=== PATIENT | female | born 1970 | race African-American/Black ===

== ENCOUNTER 2016-12-21 14:06 | Emergency (ER) | payer BC ==
[2016-12-21] MEDS ORDERED: IBUPROFEN 600 MG TABLET PO ONE (15:45)
[2016-12-21] MEDS ORDERED: ONDANSETRON 4 MG TAB.RAPDIS PO ONE (15:45)
[2016-12-21] MEDS ORDERED: HYDROCODONE/ACETAMINOPHEN 5-325 MG TABLET PO ONE (15:45)
--- NOTE | 2016-12-21 15:47 | ER Document Report ---
ED GI/ - General Chief Complaint: Flank Pain Stated Complaint: STOMACH PAIN Time Seen by Provider: 12/21/16 15:41 Notes: Patient is a 46-year-old female, past medical history fibroids, presents with 2 days of left flank pain radiating into her groin. She says the pain is now constant she is noticing blood in her urine. She has never had this before. Also, she is having nausea and vomiting. Denies fevers, headache, chest pain, shortness of breath, dysuria or rash. TRAVEL OUTSIDE OF THE [place] IN LAST 30 DAYS: No - Related Data Allergies/Adverse Reactions: No Known Allergies Allergy (Verified 12/21/16 14:12) Past Medical History - General Information source: Patient - Social History Smoking Status: Current Every Day Smoker Family History: CVA, Other - lung cancer- mom Patient has suicidal ideation: No Patient has homicidal ideation: No - Past Medical History Cardiac Medical History: Reports: Hx Hypertension Renal/ Medical History: Denies: Hx Peritoneal Dialysis Psychiatric Medical History: Reports: Hx Depression Past Surgical History: Reports: Hx Section, Hx Tubal Ligation Review of Systems - Review of Systems Notes: REVIEW OF SYSTEMS: CONSTITUTIONAL: -fevers, -chills EENT: -eye pain, -difficulty swallowing, -nasal congestion CARDIOVASCULAR:-chest pain, -syncope. RESPIRATORY: -cough, -SOB GASTROINTESTINAL: +abdominal pain, +nausea, +vomiting, -diarrhea GENITOURINARY: -dysuria, +hematuria MUSCULOSKELETAL: +left flank pain, -neck pain SKIN: -rash or skin lesions. HEMATOLOGIC: -easy bruising or bleeding. LYMPHATIC: -swollen, enlarged glands. NEUROLOGICAL: -altered mental status or loss of consciousness, -headache, - neurologic symptoms PSYCHIATRIC: -anxiety, -depression. ALL OTHER SYSTEMS REVIEWED AND NEGATIVE. Physical Exam - Vital signs Vitals: Temp Pulse Resp BP Pulse Ox 99.1 F 98 20 146/78 H 100 12/21/16 14:12 12/21/16 14:12 12/21/16 14:12 12/21/16 14:12 12/21/16 14:12 - Notes Notes: PHYSICAL EXAMINATION: GENERAL: Uncomfortable. HEAD: Atraumatic, normocephalic. EYES: Pupils equal round and reactive to light, extraocular movements intact, sclera anicteric, conjunctiva are normal. ENT: nares patent, oropharynx clear without exudates. Moist mucous membranes. NECK: Normal range of motion, supple without lymphadenopathy LUNGS: Breath sounds clear to auscultation bilaterally and equal. No wheezes rales or rhonchi. HEART: Regular rate and rhythm without murmurs ABDOMEN: Soft, nontender, normoactive bowel sounds. No guarding, no rebound. No masses appreciated. EXTREMITIES: Normal range of motion, no pitting or edema. No cyanosis. NEUROLOGICAL: Cranial nerves grossly intact. Normal speech, normal gait. Normal sensory and motor exams. PSYCH: Normal mood, normal affect. SKIN: Warm, Dry, normal turgor, no rashes or lesions noted. Course - Re-evaluation Re-evalutation: Call from lab. Patient has hemoglobin of 6.3. She has a history of fibroids and has menstrual bleeding for 10-12 days a month. Will transfer patient back to main side for further evaluation and treatment. Type and screen sent and will crossmatch for 1 unit pRBCs. - Vital Signs Vital signs: Temp Pulse Resp BP Pulse Ox 99.1 F 98 20 146/78 H 100 12/21/16 14:12 12/21/16 14:12 12/21/16 14:12 12/21/16 14:12 12/21/16 14:12 - Laboratory Result Diagrams: 12/21/16 15:56 12/21/16 15:56 Laboratory results interpreted by me: 12/21/16 12/21/16 15:56 15:56 Hgb 6.3 L Hct 23.4 L MCV 54 L MCH 14.6 L MCHC 26.8 L RDW 23.8 H Plt Count 475 H Sodium 136.8 L Est GFR (Non-Af Amer) 58 L Alkaline Phosphatase 36 L
[2016-12-21 16:22] LABS: ABSOLUTE BASOPHILS # (AUTO) 0.1 10^3/uL (0.0-0.2); ABSOLUTE EOSINOPHILS # (AUTO) 0.2 10^3/uL (0.0-0.6); ABSOLUTE LYMPHOCYTES (AUTO) 2.5 10^3/uL (0.5-4.7); ABSOLUTE MONOCYTES (AUTO) 0.7 10^3/uL (0.1-1.4); ABSOLUTE NEUT (AUTO) 4.5 10^3/uL (1.7-8.2); BASOPHILS % (AUTO) 0.9 % (0-2); EOSINOPHILS % (AUTO) 2.8 % (0-6); HEMATOCRIT 23.4 % (36.0-47.0); LYMPHOCYTES % (AUTO) 31.3 % (13-45); MEAN CORPUSCULAR HEMOGLOBIN 14.6 pg (27.0-33.4); MEAN CORPUSCULAR HGB CONC 26.8 g/dL (32.0-36.0); MEAN CORPUSCULAR VOLUME 54 fl (80-97); MONOCYTES % (AUTO) 8.4 % (3-13); RED CELL DISTRIBUTION WIDTH 23.8 % (11.5-14.0); SEGMENTED NEUTROPHILS % (AUTO) 56.6 % (42-78)
--- NOTE | 2016-12-21 16:22 | RADIOLOGY REPORT (SQ) ---
EXAM DESCRIPTION: CT LTD RENAL STONE PROTOCOL ON COMPLETED DATE/TIME: 12/21/2016 4:09 pm REASON FOR STUDY: left flank pain COMPARISON: 11/15/2013 TECHNIQUE: CT scan of the abdomen and pelvis performed without intravenous or oral contrast. Images reviewed with lung, soft tissue, and bone windows. Reconstructed coronal and sagittal MPR images revi ewed. All images stored on PACS. All CT scanners at this facility use dose modulation, iterative reconstruction, and/or weight based d osing when appropriate to reduce radiation dose to as low as reasonably achievable (ALARA). [facility]: Dose Right [facility]: CareDose [facility]: Dose Right [facility]: Teradose 4D [facility]: Smart TopRealty RADIATION DOSE: Up-to-date CT equipment and radiation dose reduction techniques were employed. CTDIv ol: 9.8 mGy. DLP: 468 mGy-cm.mGy. LIMITATIONS: Motion. FINDINGS: LOWER CHEST: No significant findings. No nodules or infiltrates. NON-CONTRASTED LIVER, SPLEEN, ADRENALS: Stable hepatic cyst and hemangioma. PANCREAS: No masses. No peripancreatic inflammatory changes. GALLBLADDER: No identified stones by CT criteria. No inflammatory changes to suggest cholecystitis. RIGHT KIDNEY AND URETER: No suspicious masses. Assessment limited by lack of IV contrast. No signif icant calcifications. No hydronephrosis or hydroureter. LEFT KIDNEY AND URETER: No suspicious masses. Assessment limited by lack of IV contrast. No signifi cant calcifications. No hydronephrosis or hydroureter. AORTA AND RETROPERITONEUM: No aneurysm. No retroperitoneal masses or adenopathy. BOWEL AND PERITONEAL CAVITY: No obvious masses or inflammatory changes. No free fluid. APPENDIX: Normal. PELVIS, BLADDER, AND ABDOMINAL WALL:Enlarged fibroid uterus. BONES: No significant findings. OTHER: No other significant finding. IMPRESSION: No acute abnormality in the abdomen or pelvis. TECHNICAL DOCUMENTATION: JOB ID: [id number] Quality ID # [id number]: Final reports with documentation of one or more dose reduction techniques (e.g., Au tomated exposure control, adjustment of the mA and/or kV according to patient size, use of iterative reconstruction technique) 2010 [employer]- All Rights Reserved
[2016-12-21 16:36] LABS: ALANINE AMINOTRANSFERASE 16 U/L (9-52); ALBUMIN 4.6 g/dL (3.5-5.0); ALKALINE PHOSPHATASE 36 U/L (38-126); ANION GAP 13 (5-19); ASPARTATE AMINO TRANSFERASE 15 U/L (14-36); BILIRUBIN,DIRECT 0.3 mg/dL (0.0-0.4); BILIRUBIN,TOTAL 0.4 mg/dL (0.2-1.3); BLOOD UREA NITROGEN 14 mg/dL (7-20); CALCIUM 9.7 mg/dL (8.4-10.2); CARBON DIOXIDE 24 mmol/L (22-30); CHLORIDE 100 mmol/L (98-107); CREATININE RESULT 1.04 mg/dL (0.52-1.25); GLUCOSE 99 mg/dL (75-110); LIPASE 78.2 U/L (23-300); SODIUM 136.8 mmol/L (137-145); TOTAL PROTEIN 7.8 g/dL (6.3-8.2)
[2016-12-21 16:45] LABS: HGB HCT DIFFERENCE -4.5
[2016-12-21 16:48] LABS: HYPOCHROMASIA 3+; MICROCYTOSIS 4+; POIKILOCYTOSIS 2+
[2016-12-21 16:49] LABS: OVALOCYTES SLIGHT; TARGET CELLS SLIGHT; TEAR DROP CELLS SLIGHT
[2016-12-21 16:57] LABS: HEMOGLOBIN 6.3 g/dL (12.0-15.5)
[2016-12-21] MEDS ORDERED: NORMAL SALINE 250 ML IV PRN (16:59)
[2016-12-21 17:19] LABS: APPEARANCE,URINE CLEAR; BILIRUBIN,URINE NEGATIVE (NEGATIVE); GLUCOSE, URINE NEGATIVE (NEGATIVE); KETONES,URINE NEGATIVE (NEGATIVE); LEUKOCYTE ESTERASE,URINE NEGATIVE (NEGATIVE); NITRITE,URINE NEGATIVE (NEGATIVE); PROTEIN,URINE NEGATIVE (NEGATIVE); URINE SPECIFIC GRAVITY 1.011; UROBILINOGEN,URINE NEGATIVE mg/dL (<2.0)
[2016-12-21 22:57] VITALS: BP 143/89
== END 2016-12-21 23:00 | disposition home or self-care (01) ==
LOC: ER 14:06
DX: D25.9 Leiomyoma of uterus, unspecified (principal); D64.9 Anemia, unspecified; K59.00 Constipation, unspecified; N92.0 Excessive and frequent menstruation with regular cycle; R10.9 Unspecified abdominal pain; R11.2 Nausea with vomiting, unspecified; F17.200 Nicotine dependence, unspecified, uncomplicated; Z98.51 Tubal ligation status
CPT/HCPCS: 99284; 86900; 86901; 36415; 36430; 86850; 83540; 83690; 85025; 81025; 80053; 81001; 86920; 76380; P9016; S0119

== ENCOUNTER 2017-07-16 14:44 | Observation (INO) | payer SELFPAY ==
[~2017-07-16 14:44] MED LIST: ACETAMINOPHEN 325 MG TABLET PO PRN; DIPHENHYDRAMINE HCL 25 MG CAPSULE PO PRN; FUROSEMIDE INJ/PF 20 MG/2 ML SDV IV PRN
[2017-07-16] MEDS ORDERED: NORMAL SALINE 250 ML IV PRN (15:02)
[2017-07-16 15:55] LABS: MEAN CORPUSCULAR HEMOGLOBIN 14.2 pg (27.0-33.4); MEAN CORPUSCULAR HGB CONC 26.3 g/dL (32.0-36.0); MEAN CORPUSCULAR VOLUME 54 fl (80-97); PLATELET COUNT 138 10^3/uL (150-450); RED BLOOD COUNT 3.32 10^6/uL (3.72-5.28); RED CELL DISTRIBUTION WIDTH 28.4 % (11.5-14.0); WHITE BLOOD COUNT 6.9 10^3/uL (4.0-10.5)
[2017-07-16 16:19] LABS: HEMOGLOBIN 4.7 g/dL (12.0-15.5)
[2017-07-17 09:48] LABS: HEMATOCRIT 29.9 % (36.0-47.0); MEAN CORPUSCULAR HEMOGLOBIN 19.1 pg (27.0-33.4); MEAN CORPUSCULAR HGB CONC 29.8 g/dL (32.0-36.0); PLATELET COUNT 106 10^3/uL (150-450); RED BLOOD COUNT 4.67 10^6/uL (3.72-5.28); RED CELL DISTRIBUTION WIDTH 35.3 % (11.5-14.0); WHITE BLOOD COUNT 6.5 10^3/uL (4.0-10.5)
[2017-07-17 09:55] LABS: HEMOGLOBIN 8.9 g/dL (12.0-15.5)
[2017-07-17 09:56] LABS: MEAN CORPUSCULAR VOLUME 64 fl (80-97)
[2017-07-17 10:00] VITALS: BP 143/79
== END 2017-07-17 11:04 | disposition home or self-care (01) ==
LOC: 2S 14:44
PROVIDERS: ADMIT Internal Medicine Hematology & Oncology; ATTEND Internal Medicine Hematology & Oncology
PROC: 30233N1 Transfusion of Nonautologous Red Blood Cells into Peripheral Vein, Percutaneous Approach (ICD-10-PCS; principal; 2017-07-16)
PROC: 30233N1 Transfusion of Nonautologous Red Blood Cells into Peripheral Vein, Percutaneous Approach (ICD-10-PCS; 2017-07-17)
DX: D64.9 Anemia, unspecified (principal)
CPT/HCPCS: 86900; 86901; 36415 ×2; 36430; 86850; 85027; 86920; G0378 ×2; P9016 ×2; J1940; 96374

== ENCOUNTER 2017-07-29 10:06 | Outpatient (CLI) | payer SELFPAY ==
[~2017-07-29 10:06] MED LIST changes: -DIPHENHYDRAMINE HCL 25 MG CAPSULE PO PRN; +DIPHENHYDRAMINE HCL 50 MG/ML VIAL IV PRN; -FUROSEMIDE INJ/PF 20 MG/2 ML SDV IV PRN; +IRON DEXTRAN COMPLEX 25 MG in SYRINGE, DISPOSABLE, 1 EACH IV PRN; +IRON DEXTRAN COMPLEX 975 MG in NORMAL SALINE 1000 ML 1,000 ML IV PRN; +NORMAL SALINE 250 ML IV PRN
[2017-07-29 12:15] VITALS: BP 151/82
== END 2017-07-29 15:53 | disposition home or self-care (01) ==
LOC: II 10:06 → 5TH 10:10 → II 15:53
PROVIDERS: ATTEND Internal Medicine Hematology & Oncology
PROC: 3E033GC Introduction of Other Therapeutic Substance into Peripheral Vein, Percutaneous Approach (ICD-10-PCS; principal; 2017-07-29)
DX: D50.0 Iron deficiency anemia secondary to blood loss (chronic) (principal)
CPT/HCPCS: 96365; 96366; 96374; J1200; J1750; J7030; J3490; 96375

== ENCOUNTER 2017-10-08 12:56 | Outpatient (CLI) | payer BC, OTHER ==
[~2017-10-08 12:56] MED LIST changes: -ACETAMINOPHEN 325 MG TABLET PO PRN; -DIPHENHYDRAMINE HCL 50 MG/ML VIAL IV PRN; +FERRIC CARBOXYMALTOSE 750 MG in NORMAL SALINE 250 ML IV PRN; -IRON DEXTRAN COMPLEX 25 MG in SYRINGE, DISPOSABLE, 1 EACH IV PRN; -IRON DEXTRAN COMPLEX 975 MG in NORMAL SALINE 1000 ML 1,000 ML IV PRN
[2017-10-08 13:21] VITALS: BP 137/82
== END 2017-10-08 14:35 | disposition home or self-care (01) ==
LOC: II 12:56 → 5TH 13:19 → II 14:35
PROVIDERS: ATTEND Specialist
PROC: 3E033GC Introduction of Other Therapeutic Substance into Peripheral Vein, Percutaneous Approach (ICD-10-PCS; principal; 2017-10-08)
DX: D50.0 Iron deficiency anemia secondary to blood loss (chronic) (principal); N92.0 Excessive and frequent menstruation with regular cycle
CPT/HCPCS: 96367; J7050; J1439; 96374

== ENCOUNTER 2017-10-15 12:50 | Outpatient (CLI) | payer BC, OTHER ==
[2017-10-15 13:24] VITALS: BP 124/73
== END 2017-10-15 14:10 | disposition home or self-care (01) ==
LOC: II 12:50 → 5TH 12:54 → II 14:10
PROVIDERS: ATTEND Internal Medicine Hematology & Oncology
PROC: 3E033GC Introduction of Other Therapeutic Substance into Peripheral Vein, Percutaneous Approach (ICD-10-PCS; principal; 2017-10-15)
DX: D50.0 Iron deficiency anemia secondary to blood loss (chronic) (principal); N92.0 Excessive and frequent menstruation with regular cycle
CPT/HCPCS: 96365; J7050; J1439

== ENCOUNTER 2017-11-03 05:17 | Day surgery (SDC) | payer BC ==
--- NOTE | 2017-11-01 11:57 | RADIOLOGY REPORT (SQ) ---
EXAM DESCRIPTION: CHEST PA/LATERAL COMPLETED DATE/TIME: 11/01/2017 11:48 am REASON FOR STUDY: PRE OP COMPARISON: Two-view chest 06/01/2014 EXAM PARAMETERS: NUMBER OF VIEWS: two views TECHNIQUE: Digital Frontal and Lateral radiographic views of the chest acquired. RADIATION DOSE: NA LIMITATIONS: none FINDINGS: LUNGS AND PLEURA: No opacities, masses or pneumothorax. No pleural effusion. MEDIASTINUM AND HILAR STRUCTURES: No masses or contour abnormalities. HEART AND VASCULAR STRUCTURES: Moderate cardiomegaly BONES: No acute findings. HARDWARE: None in the chest. OTHER: No other significant finding. IMPRESSION: Moderate cardiomegaly TECHNICAL DOCUMENTATION: JOB ID: [id number] [employer]- All Rights Reserved Reading location - IP/workstation name: [email or web address]
[2017-11-01 12:27] LABS: HEMATOCRIT 36.8 % (36.0-47.0); HEMOGLOBIN 11.4 g/dL (12.0-15.5); MEAN CORPUSCULAR HEMOGLOBIN 25.6 pg (27.0-33.4); MEAN CORPUSCULAR HGB CONC 30.8 g/dL (32.0-36.0); MEAN CORPUSCULAR VOLUME 83 fl (80-97); PLATELET COUNT 481 10^3/uL (150-450); RED BLOOD COUNT 4.43 10^6/uL (3.72-5.28); RED CELL DISTRIBUTION WIDTH 31.3 % (11.5-14.0); WHITE BLOOD COUNT 5.1 10^3/uL (4.0-10.5)
[2017-11-01 12:37] LABS: APPEARANCE,URINE SLIGHTLY-CLOUDY; BILIRUBIN,URINE NEGATIVE (NEGATIVE); COLOR,URINE YELLOW; GLUCOSE, URINE NEGATIVE (NEGATIVE); KETONES,URINE NEGATIVE (NEGATIVE); LEUKOCYTE ESTERASE,URINE NEGATIVE (NEGATIVE); NITRITE,URINE NEGATIVE (NEGATIVE); PROTEIN,URINE NEGATIVE (NEGATIVE); URINE SPECIFIC GRAVITY 1.019; UROBILINOGEN,URINE NEGATIVE mg/dL (<2.0)
[2017-11-01 12:49] LABS: ANION GAP 11 (5-19); BLOOD UREA NITROGEN 13 mg/dL (7-20); CALCIUM 9.9 mg/dL (8.4-10.2); CARBON DIOXIDE 25 mmol/L (22-30); CHLORIDE 105 mmol/L (98-107); GLUCOSE 88 mg/dL (75-110); POTASSIUM 4.5 mmol/L (3.6-5.0); SODIUM 140.9 mmol/L (137-145)
--- NOTE | 2017-11-01 20:15 | EKG REPORT ---
SEVERITY:- NORMAL ECG - SINUS RHYTHM : Confirmed by: Yovani Rolon 01-Nov-2017 20:14:41
[~2017-11-03 05:17] MED LIST changes: +CEFAZOLIN 1 GM/D5W RTU 1 GM/50 ML RTUPB IV PRN; -FERRIC CARBOXYMALTOSE 750 MG in NORMAL SALINE 250 ML IV PRN; +LACTATED RINGERS 1000 ML IV PRN; +LIDOCAINE 0.5% INJ-PF (5 MG/ML) 50 ML SDV SUBCUT PRN; -NORMAL SALINE 250 ML IV PRN
--- NOTE | 2017-11-03 06:09 | RADIOLOGY REPORT (SQ) ---
EXAM DESCRIPTION: Single view of the chest CLINICAL HISTORY: surgery COMPARISON: 09/01/2017 FINDINGS: Single frontal view of the chest. The cardiomediastinal silhouette has normal size and contour. No consolidation, pneumothorax, or pleural effusion. No displaced rib fractures identified. Upper abdominal soft tissues are unremarkable. IMPRESSION: 1. No acute pulmonary process identified.
[2017-11-03] MEDS ORDERED: FENTANYL CITRATE INJ/PF 100 MCG/2 ML AMPUL ONE (06:54)
[2017-11-03] MEDS ORDERED: MIDAZOLAM 2 MG/2 ML INJ ONE (06:54)
[2017-11-03] MEDS ORDERED: FENTANYL CITRATE INJ/PF 250 MCG/5 ML AMPULE ONE (06:54)
[2017-11-03] MEDS ORDERED: ACETAMINOPHEN 100 ML IV ONE (06:55)
[2017-11-03] MEDS ORDERED: PROPOFOL INJ 200 MG/20 ML VIAL IV ONE (06:55)
[2017-11-03] MEDS ORDERED: MORPHINE SULFATE 10 MG/ML INJ ONE (06:55)
[2017-11-03] MEDS ORDERED: BUPIVACAINE INJ/PF LIPOSOME/PF 266 MG/20 ML SDV ONE (07:04)
[2017-11-03] MEDS ORDERED: MEPERIDINE HCL/PF INJ 25 MG/1 ML DISP.SYRIN IV PRN (07:57)
[2017-11-03] MEDS ORDERED: FENTANYL CITRATE INJ/PF 100 MCG/2 ML AMPUL IV PRN ×3 (07:57)
[2017-11-03] MEDS ORDERED: PROMETHAZINE HCL INJ 25 MG/1 ML VIAL IV PRN (07:57)
[2017-11-03] MEDS ORDERED: MORPHINE SULFATE 10 MG/ML INJ IV PRN (07:57)
[2017-11-03] MEDS ORDERED: DIPHENHYDRAMINE HCL 50 MG/ML VIAL IV PRN (07:57)
[2017-11-03] MEDS ORDERED: MORPHINE INJ 4 MG DOSE (EDIT ROUTE) INJ PRN (09:00)
[2017-11-03] MEDS ORDERED: PROMETHAZINE HCL INJ 25 MG/1 ML VIAL IM PRN (09:00)
[2017-11-03] MEDS ORDERED: MORPHINE INJ 8 MG DOSE IM PRN (09:00)
[2017-11-03] MEDS ORDERED: MORPHINE INJ 6 MG DOSE (EDIT ROUTE) INJ PRN (09:00)
[2017-11-03] MEDS: FENTANYL CITRATE INJ/PF 100 MCG/2 ML AMPUL ONE ×2 (09:05→09:10)
--- NOTE | 2017-11-03 09:14 | OPERATIVE REPORT E ---
Operative Report NAME: EUGENIE REYES : 1970 AGE: 47Y DATE OF SURGERY: 11/03/2017 ROOM: OR PREOPERATIVE DIAGNOSIS: Uterine leiomyoma. POSTOPERATIVE DIAGNOSIS: Uterine leiomyoma. PROCEDURE: Supracervical hysterectomy. SURGEON: STELLA SELBY M.D. COMPLICATIONS: None. ANESTHESIA: General endotracheal. ESTIMATED BLOOD LOSS: Less than 150 mL. FINDINGS: Findings are that of approximately a 24-week size uterus. Normal tubes and ovaries appreciated. Status post partial salpingectomy. Her abdomen is normal. INDICATION OF PROCEDURE: The patient had symptomatic anemia with menorrhagia and her enlarged uterus for a number of years. She failed outpatient management. The usual risks of bleeding, infection, anesthesia, and damage to organs or tissue were discussed and the patient understood. Of particular note, she had 3 previous incisions in the uterine segment of the uterus with C-sections and possibility of supracervical hysterectomy was entertained with the patient. PROCEDURE: The patient was taken to the operating room and placed in modified lithotomy position after adequate anesthesia was ascertained, prepped and draped in the usual manner for a hysterectomy. Through a midline scar incising to subcutaneous fat and fascia, extending up to the level of the umbilicus, the peritoneum was entered without difficulty and extended superiorly and inferiorly to allow visualization of the pelvis. A large amount of dense anterior wall adhesions were encountered, where these were lysed with sharp and blunt dissection. A self-containing retractor was placed and uterus packed out of the pelvis. A surgical timeout had been performed prior to this before laparotomy and Hagen catheter had previously been placed in the bladder. The upper pedicles were identified. Round ligaments were cauterized and with the use of LigaSure device continued to the level of uterine vessels bilaterally. The uterus was isolated. Due to the large uterus present and the densely inherent anterior wall adhesions inclusive of bladder, is was elected to proceed with a supracervical hysterectomy. The uterine vessels were identified bilaterally, marked and uterus amputated. Suture ligation and cauterization were used for the superior uterine vessels. The uterus had been exteriorized during the entire case and the ureters well out of the operative field. The cervical stump was then oversewn with interrupted #1 chromic catgut and good hemostasis assured. The perineum and rectus fascia were closed with running double-stranded PDS suture. Copious irrigation was then performed. Exparel was used in the fascial layer for postoperative analgesia and the skin approximated with skin brandee. The patient tolerated the procedure well. All sponge and needle counts correct. The patient was taken to recovery in stable condition. DICTATING PHYSICIAN: STELLA SELBY M.D. [id number] PHY#: [id number] ID: [id number] JOB#: [id number] ACCT: [id number] cc:STELLA SELBY M.D. >
[2017-11-03] MEDS: MORPHINE SULFATE 10 MG/ML INJ ONE ×2 (09:15→09:25)
[2017-11-03] MEDS ORDERED: LOSARTAN PO SCH (10:00)
[2017-11-03] MEDS ORDERED: [UNRECOGNIZED DRUG - OTHER] PO SCH (10:00)
[2017-11-03] MEDS ORDERED: HYDROCHLOROTHIAZIDE PO SCH (10:00)
[2017-11-03] MEDS ORDERED: (PENDING PHARMACY ID) (Clonidine Hcl [Clonidine Hcl Er] 0.1 MG) PO SCH (10:00)
[2017-11-03] MEDS: CEFAZOLIN 1 GM/D5W RTU 1 GM/50 ML RTUPB IV SCH ×2 (11:27→17:43)
[2017-11-03] MEDS: OXYCODONE-ACETAMINOPHEN 5-325 MG TABLET PO PRN ×3 (11:27→20:17)
[2017-11-03] MEDS ORDERED: VECURONIUM BROMIDE INJ 10 MG VIAL IV ONE (11:39)
[2017-11-03] MEDS ORDERED: DEXAMETHASONE SOD PHOSPHATE INJ 4 MG/1 ML VIAL ONE (11:39)
[2017-11-03] MEDS ORDERED: PHENYLEPHRINE HCL INJ/PF 10 MG/1 ML SDV ONE (11:39)
[2017-11-03] MEDS ORDERED: LIDOCAINE 2% INJ-PF (20 MG/ML) 2 ML AMPUL ONE (11:39)
[2017-11-03] MEDS ORDERED: ONDANSETRON HCL INJ/PF 4 MG/2 ML SDV ONE (11:39)
[2017-11-03] MEDS ORDERED: GLYCOPYRROLATE INJ 0.4 MG/2 ML VIAL ONE (11:39)
[2017-11-03] MEDS ORDERED: SUCCINYLCHOLINE CHLORIDE INJ 200 MG/10 ML VIAL ONE (11:39)
[2017-11-03] MEDS ORDERED: NEOSTIGMINE METHYLSULFATE 10 MG/10 ML VIAL ONE (11:39)
[2017-11-03] MEDS ORDERED: CEFAZOLIN 1 GM RTU (EDIT START TIME) IV SCH (12:00)
[2017-11-03] MEDS: IBUPROFEN 800 MG TABLET PO SCH ×2 (13:13→22:54)
[2017-11-03] MEDS: LORAZEPAM 0.5 MG TABLET PO SCH ×2 (13:19→18:00)
[2017-11-03] MEDS: AMLODIPINE BESYLATE 10 MG TABLET PO SCH (13:19)
[2017-11-03] MEDS: LOSARTAN POTASSIUM 50 MG TABLET PO SCH (13:19)
[2017-11-03] MEDS: HYDROCHLOROTHIAZIDE 25 MG TABLET PO SCH (13:19)
[2017-11-03] MEDS ORDERED: OXYCODONE-ACETAMINOPHEN 5-325 MG TABLET PO PRN (18:24)
[2017-11-03] MEDS ORDERED: LORAZEPAM 0.5 MG TABLET PO PRN (18:25)
[2017-11-03] MEDS: CLONIDINE HCL 0.1 MG TABLET PO SCH (22:54)
[2017-11-04] MEDS: OXYCODONE-ACETAMINOPHEN 5-325 MG TABLET PO PRN ×2 (02:49→08:08)
[2017-11-04 06:19] LABS: HEMATOCRIT 31.9 % (36.0-47.0); MEAN CORPUSCULAR HEMOGLOBIN 25.7 pg (27.0-33.4); MEAN CORPUSCULAR HGB CONC 31.4 g/dL (32.0-36.0); MEAN CORPUSCULAR VOLUME 82 fl (80-97); PLATELET COUNT 382 10^3/uL (150-450); RED BLOOD COUNT 3.91 10^6/uL (3.72-5.28); RED CELL DISTRIBUTION WIDTH 30.3 % (11.5-14.0)
[2017-11-04] MEDS: IBUPROFEN 800 MG TABLET PO SCH (06:22)
[2017-11-04 06:35] LABS: WHITE BLOOD COUNT 11.7 10^3/uL (4.0-10.5)
[2017-11-04 08:57] VITALS: BP 145/82
[2017-11-04] MEDS: LOSARTAN POTASSIUM 50 MG TABLET PO SCH (09:11)
[2017-11-04] MEDS: CLONIDINE HCL 0.1 MG TABLET PO SCH (09:12)
[2017-11-04] MEDS: AMLODIPINE BESYLATE 10 MG TABLET PO SCH (09:12)
[2017-11-04] MEDS: HYDROCHLOROTHIAZIDE 25 MG TABLET PO SCH (09:12)
== END 2017-11-04 09:30 | disposition home or self-care (01) ==
LOC: OROUT 05:17 → UNDOADMIN 05:17 → INOR 05:17 → EDSTATUS 07:15 → 2N 10:15 → INOR 10:15 → UNDODISIN 11-04 09:30 → OROUT 11-04 09:30
PROVIDERS: ATTEND Specialist
DX: D25.9 Leiomyoma of uterus, unspecified (principal); N80.0 Endometriosis of uterus; I10 Essential (primary) hypertension; D64.9 Anemia, unspecified; N92.0 Excessive and frequent menstruation with regular cycle; F17.210 Nicotine dependence, cigarettes, uncomplicated; Z79.899 Other long term (current) drug therapy
CPT/HCPCS: 93005; 86900; 86901; 36415 ×4; 86850; 84132; 85027 ×2; 81025; 80048; 81001; 88307 ×2; 71046; 71045; 94799; 93010; 58180; J2250; J0690; J1100; J3010 ×2; J3490 ×2; J2270; J2370; J0330; J2405; J7120; J2704; J0131; C9290; 840

== ENCOUNTER 2017-12-16 09:55 | Outpatient (CLI) | payer BC ==
[~2017-12-16 09:55] MED LIST changes: -CEFAZOLIN 1 GM/D5W RTU 1 GM/50 ML RTUPB IV PRN; +FERRIC CARBOXYMALTOSE 750 MG in NORMAL SALINE 250 ML IV PRN; -LACTATED RINGERS 1000 ML IV PRN; -LIDOCAINE 0.5% INJ-PF (5 MG/ML) 50 ML SDV SUBCUT PRN; +NORMAL SALINE 250 ML IV PRN
[2017-12-16 10:30] VITALS: BP 153/93
== END 2017-12-16 11:24 | disposition home or self-care (01) ==
LOC: II 09:55 → 5TH 09:57 → II 11:24
PROVIDERS: ATTEND Internal Medicine Hematology & Oncology
PROC: 3E033GC Introduction of Other Therapeutic Substance into Peripheral Vein, Percutaneous Approach (ICD-10-PCS; principal; 2017-12-16)
DX: D50.0 Iron deficiency anemia secondary to blood loss (chronic) (principal); N92.0 Excessive and frequent menstruation with regular cycle
CPT/HCPCS: 96367; J7050; J1439; 96374

== ENCOUNTER 2017-12-23 10:11 | Outpatient (CLI) | payer BC ==
[2017-12-23 10:34] VITALS: BP 140/83
== END 2017-12-23 11:52 | disposition home or self-care (01) ==
LOC: II 10:11 → 5TH 10:13 → II 11:52
PROVIDERS: ATTEND Internal Medicine Hematology & Oncology
PROC: 3E033GC Introduction of Other Therapeutic Substance into Peripheral Vein, Percutaneous Approach (ICD-10-PCS; principal; 2017-12-23)
DX: D50.0 Iron deficiency anemia secondary to blood loss (chronic) (principal); N92.0 Excessive and frequent menstruation with regular cycle
CPT/HCPCS: 96365; J7050; J1439

== ENCOUNTER 2018-09-29 18:52 | Emergency (ER) | payer BC ==
--- NOTE | 2018-09-29 19:53 | ER Document Report ---
ED Medical Screen (RME) - General Chief Complaint: Shortness Of Breath Stated Complaint: HEADACHE,COUGH,CONGESTION Time Seen by Provider: 09/29/18 19:47 Primary Care Provider: STELLA SELBY MD [Primary Care Provider] - Follow up as needed TRAVEL OUTSIDE OF THE [place] IN LAST 30 DAYS: No - HPI Notes: 09/29/18 19:51 Patient is a 48-year-old female with history of hypertension who presents to the emergency department complaining of a semi-productive cough, nasal congestion/discharge and chest pain intermittently that began last week. Patient states that she was seen at an urgent care today and was clinically diagnosed with pneumonia, but no imaging was performed. Patient was given a shot of Rocephin and had a negative flu test. Patient states that she has had some deaths in the family and is concerned about her heart as she is having chest pain so she came here for further evaluation. Patient states that the pain is worse when she coughs, but is present at rest. Pain does not radiate. No significant cardiopulmonary medical history otherwise aside from she is a smoker. Denies any prolonged immobilization, distance travel, recent surgery/trauma, personal cancer history, hormone use, or previous DVT/PE. Denies SCHWARTZ, fever, neck pain, Abd pain, or rash. I have treated and performed a rapid initial assessment of this patient. A comprehensive ED assessment and evaluation of the patient, analysis of test results and completion of medical decision making process will be conducted by additional ED providers. PHYSICAL EXAMINATION: GENERAL: Well-appearing, well-nourished and in no acute distress. A&Ox4. Answers questions appropriately. Chest: + moderate tenderness to palp left chest wall. LUNGS: Breath sounds clear to auscultation bilaterally and equal. No wheezes rales or rhonchi. HEART: Regular rate and rhythm without murmurs, rubs, gallops. Extremities: No cyanosis, clubbing, or edema b/l. No lower extremity asymmetry. Juan negative bilaterally. NEUROLOGICAL: Normal speech, normal gait. PSYCH: Normal mood, normal affect. - Related Data Allergies/Adverse Reactions: No Known Allergies Allergy (Verified 12/21/16 14:12) Past Medical History - Social History Chew tobacco use (# tins/day): No Frequency of alcohol use: Occasional Drug Abuse: None - Past Medical History Cardiac Medical History: Reports: Hx Hypertension Denies: Hx Coronary Artery Disease, Hx Heart Attack Pulmonary Medical History: Denies: Hx Asthma, Hx Bronchitis, Hx COPD, Hx Pneumonia Neurological Medical History: Denies: Hx Cerebrovascular Accident, Hx Seizures Renal/ Medical History: Denies: Hx Peritoneal Dialysis Musculoskeltal Medical History: Denies Hx Arthritis Psychiatric Medical History: Reports: Hx Depression Past Surgical History: Reports: Hx Section, Hx Hysterectomy, Hx Tubal Ligation - Immunizations Hx Diphtheria, Pertussis, Tetanus Vaccination: No History of Influenza Vaccine for 03/2017 - 08/2017 Season: Refused Doctor's Discharge - Discharge Referrals: STELLA SELBY MD [Primary Care Provider] - Follow up as needed
--- NOTE | 2018-09-29 20:36 | RADIOLOGY REPORT (SQ) ---
EXAM DESCRIPTION: XR CHEST 1 VIEW COMPLETED DATE/TME: 09/29/2018 19:51 CLINICAL HISTORY: 48 years, Female, CP Compared to 11/01/2017. Findings: The heart is mildly enlarged. Aorta is uncoiled. No consolidation or pleural effusion. No pulmonary edema or pneumothorax. IMPRESSION: No acute disease.
[2018-09-29 21:15] LABS: ABSOLUTE BASOPHILS # (AUTO) 0.1 10^3/uL (0.0-0.2); ABSOLUTE EOSINOPHILS # (AUTO) 0.3 10^3/uL (0.0-0.6); ABSOLUTE LYMPHOCYTES (AUTO) 1.9 10^3/uL (0.5-4.7); ABSOLUTE MONOCYTES (AUTO) 0.5 10^3/uL (0.1-1.4); ABSOLUTE NEUT (AUTO) 4.8 10^3/uL (1.7-8.2); EOSINOPHILS % (AUTO) 4.1 % (0-6); HEMATOCRIT 46.4 % (36.0-47.0); HEMOGLOBIN 15.5 g/dL (12.0-15.5); LYMPHOCYTES % (AUTO) 24.9 % (13-45); MEAN CORPUSCULAR HEMOGLOBIN 27.5 pg (27.0-33.4); MEAN CORPUSCULAR HGB CONC 33.3 g/dL (32.0-36.0); MEAN CORPUSCULAR VOLUME 83 fl (80-97); MONOCYTES % (AUTO) 6.2 % (3-13); PLATELET COUNT 267 10^3/uL (150-450); RED BLOOD COUNT 5.61 10^6/uL (3.72-5.28); RED CELL DISTRIBUTION WIDTH 14.9 % (11.5-14.0); SEGMENTED NEUTROPHILS % (AUTO) 63.8 % (42-78); TOTAL CELLS COUNTED % (AUTO) 100 %; WHITE BLOOD COUNT 7.6 10^3/uL (4.0-10.5)
[2018-09-29 21:35] LABS: ALANINE AMINOTRANSFERASE 18 U/L (9-52); ALBUMIN 4.2 g/dL (3.5-5.0); ALKALINE PHOSPHATASE 44 U/L (38-126); ANION GAP 9 (5-19); ASPARTATE AMINO TRANSFERASE 23 U/L (14-36); BILIRUBIN,DIRECT 0.4 mg/dL (0.0-0.4); BILIRUBIN,TOTAL 0.6 mg/dL (0.2-1.3); BLOOD UREA NITROGEN 12 mg/dL (7-20); CALCIUM 10.1 mg/dL (8.4-10.2); CARBON DIOXIDE 23 mmol/L (22-30); CHLORIDE 106 mmol/L (98-107); GLUCOSE 102 mg/dL (75-110); POTASSIUM 4.2 mmol/L (3.6-5.0); SODIUM 137.5 mmol/L (137-145); TOTAL PROTEIN 7.5 g/dL (6.3-8.2)
--- NOTE | 2018-09-29 23:16 | ER Document Report ---
ED Respiratory Problem - General Chief Complaint: Shortness Of Breath Stated Complaint: HEADACHE,COUGH,CONGESTION Time Seen by Provider: 09/29/18 19:47 Primary Care Provider: STELLA SELBY MD [EMERITUS] - Follow up as needed Mode of Arrival: Ambulatory Information source: Patient Notes: Patient is a 48-year-old female comes emergency room complaining of one week of cough with yellow green color no fever but chills. She gets into coughing fits that cause her stay awake at night. Patient states that she went to [facility] and they gave her doxycycline as an antibiotic but she did not feel any better after getting the first pill down so she came to the emergency room to see what was going on. Patient has a history of hyperten abhishek and it also is bothering her today. She has a diastolic reading of 124 on the monitor. She also states that she has only surgical history of a hysterectomy so she is postmenopausal with that. 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 Patient's blood pressure medications include clonidine, amlodipine, and hydrochlorothiazide. She also smokes about 7 cigarettes a day. TRAVEL OUTSIDE OF THE [place] IN LAST 30 DAYS: No - HPI Patient complains to provider of: Asthma, Cough, Short of breath Onset: Last week Duration: Continuous, Worse/persistent Initiating Event: Exertion, Other Quality of pain: Achy, Throbbing Severity: Moderate Pain Level: 3 Short of Breath: Mild Cough: Productive Sputum amount: Moderate Sputum color: Brown, Creamy Sputum consistency: Thick EMS treatments: Oxygen Associated symptoms: Congestion, Cough, Earache, Runny nose, Sinus pain/pressure, Sore Throat, Toothache, Other Worsened by: Laying down Similar symptoms previously: Yes Recently seen / treated by doctor: Yes - Related Data Allergies/Adverse Reactions: No Known Allergies Allergy (Verified 12/21/16 14:12) Past Medical History - Social History Smoking Status: Current Every Day Smoker Cigarette use (# per day): Yes - 7 cigarettes a day Chew tobacco use (# tins/day): No Frequency of alcohol use: Occasional Drug Abuse: None Lives with: Family Family History: Reviewed & Not Pertinent, CVA, Other - lung cancer- mom Patient has suicidal ideation: No Patient has homicidal ideation: No - Past Medical History Cardiac Medical History: Reports: Hx Hypertension Denies: Hx Coronary Artery Disease, Hx Heart Attack Pulmonary Medical History: Denies: Hx Asthma, Hx Bronchitis, Hx COPD, Hx Pneumonia Neurological Medical History: Denies: Hx Cerebrovascular Accident, Hx Seizures Renal/ Medical History: Denies: Hx Peritoneal Dialysis Musculoskeletal Medical History: Denies Hx Arthritis Psychiatric Medical History: Reports: Hx Depression Past Surgical History: Reports: Hx Section, Hx Hysterectomy, Hx Tubal L igation - Immunizations Hx Diphtheria, Pertussis, Tetanus Vaccination: No Review of Systems - Review of Systems Constitutional: No symptoms reported, Fever, Malaise, Weakness EENT: No symptoms reported, Nose congestion, Nose discharge, Sinus pressure, Sinus discharge, Throat pain Cardiovascular: No symptoms reported Respiratory: See HPI, Cough, Sputum Gastrointestinal: No symptoms reported Genitourinary: No symptoms reported Female Genitourinary: No symptoms reported Musculoskeletal: No symptoms reported Skin: No symptoms reported Hematologic/Lymphatic: No symptoms reported Neurological/Psychological: No symptoms reported -: Yes All other systems reviewed and negative Physical Exam - Vital signs Vitals: Resp Pulse Ox 17 98 09/29/18 20:50 09/29/18 20:50 Interpretation: Hypertensive - Notes Notes: PHYSICAL EXAMINATION: GENERAL: Patient is well-nourished well-developed obese 48-year-old female who is in no apparent distress tonight on physical examination but does look somewhat ill appearing. Patient blood pressure reported 154/125. This is monitor reading. HEAD: Atraumatic, normocephalic. EYES: Pupils equal round and reactive to light, extraocular movements intact, conjunctiva are normal. ENT: Nares patent, oropharynx clear without exudates. Moist mucous membranes. NECK: Normal range of motion, supple without lymphadenopathy LUNGS: Breath sounds clear to auscultation bilaterally and equal. No wheezes rales or rhonchi. HEART: Regular rate and rhythm without murmurs ABDOMEN: Soft, nontender, nondistended abdomen. No guarding, no rebound. No masses appreciated. Female : deferred Musculoskeletal: Normal range of motion, no pitting or edema. No cyanosis. NEUROLOGICAL: Cranial nerves grossly intact. Normal speech, normal gait. Normal sensory, motor exams PSYCH: Normal mood, normal affect. SKIN: Warm, Dry, normal turgor, no rashes or lesions noted. Course - Re-evaluation Re-evalutation: 09/29/18 23:16 Patient's blood pressure has come down to a substantial working with blood pressure of 153/76 I believe it was and given that blood pressure we can let him go. She is on an antibiotic currently so we will leave her on the doxycycline. I will put her on Flonase as well as we will also place her on Chlor-Trimeton and hopefully the combination will dry her up. - Vital Signs Vital signs: Temp Pulse Resp BP Pulse Ox 17 183/86 H 95 09/29/18 22:01 09/29/18 22:01 09/29/18 22:01 - Laboratory Result Diagrams: 09/29/18 21:05 09/29/18 21:05 Laboratory results interpreted by me: 09/29/18 21:05 RBC 5.61 H RDW 14.9 H Discharge - Discharge Clinical Impression: Asthmatic bronchitis Qualifiers: Asthma severity: mild Asthma persistence: persistent Asthma complication type: uncomplicated Qualified Code(s): J45.30 - Mild persistent asthma, uncomplicated Sinusitis Qualifiers: Sinusitis location: sphenoidal Chronicity: acute Recurrence: not specified as recurrent Qualified Code(s): J01.30 - Acute sphenoidal sinusitis, unspecified Hypertension Qualifiers: Hypertension type: essential hypertension Qualified Code(s): I10 - Essential (primary) hypertension Disposition: HOME, SELF-CARE Instructions: Bronchitis With Bronchospasm (Wheezing) ([facility]), Sinusitis ([facility]), High Blood Pressure, Requiring Treatment ([facility]) Additional Instructions: Home and rest. Medication as prescribed. Monitor your blood pressures and keep a log as we discussed. At least in the morning late afternoon early evening and before bed. Keep this to help guide your provider make in the right choices for your blood pressure medications. Take your doxycycline according to the prescription. We are adding Flonase and he will do 2 sprays in each of the nose once a day. And were going to place you on a holding the Goody Chlor-Trimeton to help dry up the congestion or runny nose. This should dry up the cough as well. Should you have any concerns or problems he can return to the ER for recheck. I am we will place you on some Tylenol 3 with codeine is 1 of the Best cough suppressants that you can have which will also help his sleep. Prescriptions: Chlorpheniramine Maleate [Chlor-Trimeton Allergy 12 mg Repetab] 1 tab PO Q12 #1 pkg Fluticasone Propionate [Flonase Allergy Relief] 9.9 ml NS DAILY #1 spray.susp Forms: Elevated Blood Pressure, Smoking Cessation Education Referrals: STELLA SELBY MD [EMERITUS] - Follow up as needed
[2018-09-29 23:49] VITALS: BP 169/88
--- NOTE | 2018-09-30 09:52 | EKG REPORT ---
SEVERITY:- ABNORMAL ECG - SINUS RHYTHM PROBABLE LEFT VENTRICULAR HYPERTROPHY ST ELEV, PROBABLE NORMAL EARLY REPOL PATTERN : Confirmed by: Yovani Rolon 30-Sep-2018 09:51:28
== END 2018-09-30 00:13 | disposition home or self-care (01) ==
LOC: ER 18:52
DX: J45.30 Mild persistent asthma, uncomplicated (principal); J01.30 Acute sphenoidal sinusitis, unspecified; R51 Headache; I10 Essential (primary) hypertension; F17.210 Nicotine dependence, cigarettes, uncomplicated; Z90.710 Acquired absence of both cervix and uterus
CPT/HCPCS: 36415; 71045; 80053; 84484; 85025; 93005; 93010; 99284

== ENCOUNTER → 2019-02-03 | Outpatient (CLI) | payer BC ==
--- NOTE | 2019-02-03 15:19 | WOMENS IMAGING REPORT ---
EXAM DESCRIPTION: BILAT SCREENING MAMMO W/CAD COMPLETED DATE/TIME: 02/03/2019 3:07 pm REASON FOR STUDY: Z12.31 SCREENING MAMMO Z12.31 ENCNTR SCREEN MAMMOGRAM FOR MALIGNANT NEOPLASM OF B RE COMPARISON: 08/31/2014. EXAM PARAMETERS: Standard craniocaudal and mediolateral oblique views of each breast recorded using digital acquisition. Read with the assistance of CAD. .[facility] - [employer] Version 9.2 LIMITATIONS: None. FINDINGS: No suspicious masses, suspicious calcifications or architectural distortion. No areas of c oncern. IMPRESSION: Negative MAMMOGRAM. BIRADS 1 BREAST DENSITY: b. There are scattered areas of fibroglandular density. BIRAD: ASSESSMENT: 1 NEGATIVE RECOMMENDATION: ROUTINE SCREENING COMMENT: The patient has been notified of the results by letter per MQSA requirements. Additional no tification policies are in place for contacting patient with suspicious or incomplete findings. Quality ID #[id number]: The [employer] recommends an annual screening mammogram for women aged 40 years or over. This facility utilizes a reminder system to ensure that all patients receive reminder letters, and/or direct phone calls for appointments. This includes reminders for routine scr eening mammograms, diagnostic mammograms, or other Breast Imaging Interventions when appropriate. Th is patient will be placed in the appropriate reminder system. TECHNICAL DOCUMENTATION: FINDING NUMBER: (1) ASSESSMENT: (1) JOB ID: [id number] [employer]- All Rights Reserved Reading location - IP/workstation name: [email or web address]
== END ==
LOC: WI 14:50
PROVIDERS: ATTEND Internal Medicine
DX: Z12.31 Encounter for screening mammogram for malignant neoplasm of breast (principal)
CPT/HCPCS: 77067

== ENCOUNTER → 2019-09-14 | Outpatient (CLI) | payer BC ==
--- NOTE | 2019-09-14 14:41 | RADIOLOGY REPORT (SQ) ---
EXAM DESCRIPTION: KNEE RIGHT 4 VIEWS COMPLETED DATE/TIME: 09/14/2019 2:33 pm REASON FOR STUDY: M25.561 PAIN IN RIGHT KNEE M25.561 PAIN IN RIGHT KNEE COMPARISON: None. NUMBER OF VIEWS: Four views. TECHNIQUE: AP, lateral, and both oblique radiographic images acquired of the right knee. LIMITATIONS: None. FINDINGS: MINERALIZATION: Normal. BONES: No acute fracture or dislocation. No worrisome bone lesions. No significant osteophytes. JOINT: No effusion. No chondrocalcinosis. OTHER: No other significant finding. IMPRESSION: NEGATIVE STUDY OF THE RIGHT KNEE. NO EXPLANATION FOR PAIN. TECHNICAL DOCUMENTATION: JOB ID: [id number] 2010 [employer]- All Rights Reserved Reading location - IP/workstation name: [email or web address]
== END ==
LOC: RAD 13:39
PROVIDERS: ATTEND Internal Medicine
DX: M25.561 Pain in right knee (principal)

== ENCOUNTER → 2019-09-21 | Outpatient (CLI) | payer BC ==
--- NOTE | 2019-09-21 17:20 | WOMENS IMAGING REPORT ---
EXAM DESCRIPTION: RIGHT DIAGNOSTIC MAMMO W/CAD; U/S BREAST UNILAT LIMITED IMAGES COMPLETED DATE/TIME: 09/21/2019 9:41 am; 09/21/2019 10:15 am REASON FOR STUDY: n63.1; RT BREAST PAIN N63.10 UNSPECIFIED LUMP IN THE RIGHT BREAST, UNSPECIFIED QU A COMPARISON: 2014, 2018 screening mammograms EXAM PARAMETERS: Standard craniocaudal, 90 mediolateral and mediolateral oblique images of the al[address] recorded with digital acquisition. Right breast ultrasound was also performed. Read with the assistance of CAD. 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 FINDINGS: BREAST LATERALITY: Right MASSES: No suspicious masses. CALCIFICATIONS: No new or suspicious calcifications. ARCHITECTURAL DISTORTION: None. ASYMMETRY: None noted. OTHER: No other significant findings. Right breast ultrasound: New Ultrasound of the right lateral breast was performed throughout the area of pain. 3 mm simple breast cyst at the 6 to 7 o'clock position. 8 x 4 mm intramammary lymph node 9 o'clock position, 7 mm and 5 mm simple cyst right breast 10 o'clock position. IMPRESSION: No mammographic or sonographic evidence for malignancy right breast BREAST DENSITY: b. There are scattered areas of fibroglandular density. BIRAD: ASSESSMENT: 2 Benign findings. RECOMMENDATION: RECOMMENDED FOLLOW UP: Please continue yearly bilateral screening mammography/ tomos ynthesis in January 2020 SPECIFIC INTERVENTION/IMAGING/CONSULTATION RECOMMENDED:No additional intervention/ imaging/consultati on needed at this time. COMMUNICATION:Patient notified by letter COMMENT: The patient has been notified of the results by letter per MQSA requirements. Additional no tification policies are in place for contacting patient with suspicious or incomplete findings. Quality ID #225: The [employer] recommends an annual screening mammogram for women aged 40 years or over. This facility utilizes a reminder system to ensure that all patients receive reminder letters, and/or direct phone calls for appointments. This includes reminders for routine scr eening mammograms, diagnostic mammograms, or other Breast Imaging Interventions when appropriate. Th is patient will be placed in the appropriate reminder system. TECHNICAL DOCUMENTATION: FINDING NUMBER: (1) ASSESSMENT: (1) JOB ID: [id number] 2010 [employer]- All Rights Reserved Reading location - IP/workstation name: [id number]
--- NOTE | 2019-09-21 17:20 | WOMENS IMAGING REPORT ---
EXAM DESCRIPTION: RIGHT DIAGNOSTIC MAMMO W/CAD; U/S BREAST UNILAT LIMITED IMAGES COMPLETED DATE/TIME: 09/21/2019 9:41 am; 09/21/2019 10:15 am REASON FOR STUDY: n63.1; RT BREAST PAIN N63.10 UNSPECIFIED LUMP IN THE RIGHT BREAST, UNSPECIFIED QU A COMPARISON: 2014, 2018 screening mammograms EXAM PARAMETERS: Standard craniocaudal, 90 mediolateral and mediolateral oblique images of the al[address] recorded with digital acquisition. Right breast ultrasound was also performed. Read with the assistance of CAD. 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 FINDINGS: BREAST LATERALITY: Right MASSES: No suspicious masses. CALCIFICATIONS: No new or suspicious calcifications. ARCHITECTURAL DISTORTION: None. ASYMMETRY: None noted. OTHER: No other significant findings. Right breast ultrasound: New Ultrasound of the right lateral breast was performed throughout the area of pain. 3 mm simple breast cyst at the 6 to 7 o'clock position. 8 x 4 mm intramammary lymph node 9 o'clock position, 7 mm and 5 mm simple cyst right breast 10 o'clock position. IMPRESSION: No mammographic or sonographic evidence for malignancy right breast BREAST DENSITY: b. There are scattered areas of fibroglandular density. BIRAD: ASSESSMENT: 2 Benign findings. RECOMMENDATION: RECOMMENDED FOLLOW UP: Please continue yearly bilateral screening mammography/ tomos ynthesis in January 2020 SPECIFIC INTERVENTION/IMAGING/CONSULTATION RECOMMENDED:No additional intervention/ imaging/consultati on needed at this time. COMMUNICATION:Patient notified by letter COMMENT: The patient has been notified of the results by letter per MQSA requirements. Additional no tification policies are in place for contacting patient with suspicious or incomplete findings. Quality ID #225: The [employer] recommends an annual screening mammogram for women aged 40 years or over. This facility utilizes a reminder system to ensure that all patients receive reminder letters, and/or direct phone calls for appointments. This includes reminders for routine scr eening mammograms, diagnostic mammograms, or other Breast Imaging Interventions when appropriate. Th is patient will be placed in the appropriate reminder system. TECHNICAL DOCUMENTATION: FINDING NUMBER: (1) ASSESSMENT: (1) JOB ID: [id number] 2010 [employer]- All Rights Reserved Reading location - IP/workstation name: [id number]
== END ==
LOC: WI 09:05
PROVIDERS: ATTEND Internal Medicine
DX: N60.01 Solitary cyst of right breast (principal)
CPT/HCPCS: 76642; 77065

== ENCOUNTER 2020-03-12 09:04 | Emergency (ER) | payer BC ==
[2020-03-12 10:34] LABS: HEMATOCRIT 47.2 % (36.0-47.0); HEMOGLOBIN 15.7 g/dL (12.0-15.5); MEAN CORPUSCULAR HEMOGLOBIN 27.6 pg (27.0-33.4); MEAN CORPUSCULAR HGB CONC 33.2 g/dL (32.0-36.0); MEAN CORPUSCULAR VOLUME 83 fl (80-97); PLATELET COUNT 293 10^3/uL (150-450); RED BLOOD COUNT 5.69 10^6/uL (3.72-5.28); RED CELL DISTRIBUTION WIDTH 15.3 % (11.5-14.0); WHITE BLOOD COUNT 6.7 10^3/uL (4.0-10.5)
[2020-03-12 10:40] LABS: APPEARANCE,URINE CLEAR; BILIRUBIN,URINE NEGATIVE (NEGATIVE); COLOR,URINE YELLOW; GLUCOSE, URINE NEGATIVE (NEGATIVE); KETONES,URINE 20 mg/dL (NEGATIVE); LEUKOCYTE ESTERASE,URINE NEGATIVE (NEGATIVE); NITRITE,URINE NEGATIVE (NEGATIVE); PROTEIN,URINE NEGATIVE (NEGATIVE); URINE SPECIFIC GRAVITY 1.024; UROBILINOGEN,URINE NEGATIVE mg/dL (<2.0)
[2020-03-12 10:49] LABS: ALBUMIN 4.5 g/dL (3.5-5.0); ALKALINE PHOSPHATASE 39 U/L (38-126); ANION GAP 5 (5-19); ASPARTATE AMINO TRANSFERASE 17 U/L (14-36); BILIRUBIN,DIRECT 0.3 mg/dL (0.0-0.4); BILIRUBIN,TOTAL 0.6 mg/dL (0.2-1.3); BLOOD UREA NITROGEN 10 mg/dL (7-20); CALCIUM 9.6 mg/dL (8.4-10.2); CARBON DIOXIDE 27 mmol/L (22-30); CHLORIDE 103 mmol/L (98-107); GLUCOSE 107 mg/dL (75-110); POTASSIUM 4.4 mmol/L (3.6-5.0); TOTAL PROTEIN 7.4 g/dL (6.3-8.2)
[2020-03-12 11:04] LABS: ABSOLUTE LYMPHOCYTES# (MANUAL) 1.3 10^3/uL (0.5-4.7); ABSOLUTE MONOCYTES # (MANUAL) 0.4 10^3/uL (0.1-1.4); BASOPHILS % (MANUAL) 0 % (0-2); EOSINOPHILS % (MANUAL) 3 % (0-6); LYMPHOCYTES % (MANUAL) 18 % (13-45); MONOCYTES % (MANUAL) 6 % (3-13); SEGMENTED NEUTROPHILS % (MAN) 71 % (42-78); TOTAL CELLS COUNTED 100
[2020-03-12 11:07] LABS: ANISOCYTOSIS SLIGHT; PLATELET COMMENT ADEQUATE
[2020-03-12] MEDS ORDERED: TRAMADOL HCL 50 MG TABLET PO ONE (13:52)
[2020-03-12] MEDS ORDERED: ONDANSETRON 4 MG TAB.RAPDIS PO ONE (13:52)
--- NOTE | 2020-03-12 14:59 | RADIOLOGY REPORT (SQ) ---
EXAM DESCRIPTION: CT ABD/PELVIS NO ORAL OR IV IMAGES COMPLETED DATE/TIME: 03/12/2020 2:22 pm REASON FOR STUDY: diffuse abd pain COMPARISON: 12/21/2016, and 11/15/2013 TECHNIQUE: CT scan of the abdomen and pelvis performed without intravenous or oral contrast. Images reviewed with lung, soft tissue, and bone windows. Reconstructed coronal and sagittal MPR images revi ewed. All images stored on PACS. All CT scanners at this facility use dose modulation, iterative reconstruction, and/or weight based d osing when appropriate to reduce radiation dose to as low as reasonably achievable (ALARA). [facility]: Dose Right [facility]: CareDose [facility]: Dose Right [facility]: Teradose 4D [facility]: Smart [employer] RADIATION DOSE: CT Rad equipment meets quality standard of care and radiation dose reduction techniq ues were employed. CTDIvol: 12.6 mGy. DLP: 665 mGy-cm.mGy. LIMITATIONS: None. FINDINGS: LOWER CHEST: No consolidation, nodule, mass, pleural effusion, or pneumothorax. NON-CONTRASTED LIVER, SPLEEN, ADRENALS: Evaluation limited by lack of IV contrast. No identified sign ificant masses. Incidental note is made of a tiny right hepatic cyst. A right hepatic calcification , and a right hepatic hypoattenuating lesion previously characterized as a benign hepatic hemangioma. PANCREAS: No masses. No peripancreatic inflammatory changes. GALLBLADDER: No identified stones by CT criteria. No inflammatory changes to suggest cholecystitis. RIGHT KIDNEY AND URETER: No suspicious masses. Assessment limited by lack of IV contrast. No signif icant calcifications. No hydronephrosis or hydroureter. LEFT KIDNEY AND URETER: No suspicious masses. Assessment limited by lack of IV contrast. No signifi cant calcifications. No hydronephrosis or hydroureter. AORTA AND RETROPERITONEUM: No aneurysm. No retroperitoneal masses or adenopathy. BOWEL AND PERITONEAL CAVITY: No obvious masses or inflammatory changes. No free fluid. APPENDIX: Normal. PELVIS, BLADDER, AND ABDOMINAL WALL:Status post hysterectomy. No masses. No free fluid. No pelvic lymphadenopathy. BONES: No significant findings. OTHER: No other significant finding. IMPRESSION: NO SIGNIFICANT OR ACUTE PROCESS IN THE ABDOMEN OR PELVIS. COMMENT: Quality ID # [id number]: Final reports with documentation of one or more dose reduction techniques (e.g., Automated exposure control, adjustment of the mA and/or kV according to patient size, use of iterative reconstruction technique) TECHNICAL DOCUMENTATION: JOB ID: [id number] 2010 [employer] [facility] [employer]- All Rights Reserved Reading location - IP/workstation name: [email or web address]
[2020-03-12] MEDS ORDERED: CLONIDINE HCL 0.1 MG TABLET PO ONE (15:17)
--- NOTE | 2020-03-12 15:17 | ER Document Report ---
ED General - General Chief Complaint: Abdominal Pain Stated Complaint: ABDOMINAL,BACK PAIN Time Seen by Provider: 03/12/20 11:53 Primary Care Provider: ERMIAS WADSWORTH MD [Primary Care Provider] - Follow up as needed Mode of Arrival: Ambulatory Information source: Patient TRAVEL OUTSIDE OF THE [place] IN LAST 30 DAYS: No - HPI Notes: Patient presents with 3 to 4 days of abdominal discomfort. The discomfort is been a crampy sensation is been mild to moderate in intensity. Nothing is better or worse. It does radiate throughout her abdomen. She states she has had nausea and vomiting and "been unable to keep anything down". She also states she is had some diarrhea. No fevers. She denies any known ill contacts. No cough or congestion. No rashes. - Related Data Allergies/Adverse Reactions: No Known Allergies Allergy (Verified 03/12/20 09:36) Past Medical History - General Information source: Patient - Social History Smoking Status: Former Smoker Frequency of alcohol use: None Drug Abuse: None Family History: Reviewed & Not Pertinent, CVA, Other - Past Medical History Cardiac Medical History: Reports: Hx Hypertension Denies: Hx Coronary Artery Disease, Hx Heart Attack Pulmonary Medical History: Denies: Hx Asthma, Hx Bronchitis, Hx COPD, Hx Pneumonia Neurological Medical History: Denies: Hx Cerebrovascular Accident, Hx Seizures Renal/ Medical History: Denies: Hx Peritoneal Dialysis Musculoskeletal Medical History: Denies Hx Arthritis Psychiatric Medical History: Reports: Hx Depression Past Surgical History: Reports: Hx Section, Hx Hysterectomy, Hx Tubal Ligation - Immunizations Hx Diphtheria, Pertussis, Tetanus Vaccination: No Review of Systems - Review of Systems Constitutional: denies: Chills, Fever Cardiovascular: denies: Chest pain, Palpitations Respiratory: denies: Cough, Short of breath -: Yes All other systems reviewed and negative Physical Exam - Vital signs Vitals: Temp Pulse Resp BP Pulse Ox 98.6 F 80 16 206/111 H 99 03/12/20 09:22 03/12/20 09:22 03/12/20 09:22 03/12/20 09:22 03/12/20 09:22 Interpretation: Hypertensive - General General appearance: Appears well, Alert - HEENT Head: Normocephalic, Atraumatic Eyes: Normal Pupils: PERRL - Respiratory Respiratory status: No respiratory distress Chest status: Nontender Breath sounds: Normal Chest palpation: Normal - Cardiovascular Rhythm: Regular Heart sounds: Normal auscultation Murmur: No - Abdominal Inspection: Normal Distension: No distension Bowel sounds: Normal Tenderness: Tender - Mild diffuse. No surgical abdominal findings. Organomegaly: No organomegaly - Back Back: Normal, Nontender - Extremities General upper extremity: Normal inspection, Nontender, Normal color, Normal ROM, Normal temperature General lower extremity: Normal inspection, Nontender, Normal color, Normal ROM, Normal temperature, Normal weight bearing. No: Juan's sign - Neurological Neuro grossly intact: Yes Cognition: Normal Orientation: AAOx4 [place] Coma Scale Eye Opening: Spontaneous [place] Coma Scale Verbal: Oriented [place] Coma Scale Motor: Obeys Commands [place] Coma Scale Total: 15 Speech: Normal Motor strength normal: LUE, RUE, LLE, RLE Sensory: Normal - Psychological Associated symptoms: Normal affect, Normal mood - Skin Skin Temperature: Warm Skin Moisture: Dry Skin Color: Normal Course - Re-evaluation Re-evalutation: 03/12/20 15:13 Patient presents with 3 to 4 days of diffuse abdominal pain with vomiting. Imaging is unremarkable. Laboratories are also unremarkable. She has a nonsurgical abdomen on exam. Vital signs are stable other than a significantly elevated blood pressure. Patient has a chronic history of hypertension and has not taken her medications today. - Vital Signs Vital signs: Temp Pulse Resp BP Pulse Ox 98.6 F 80 16 206/111 H 99 03/12/20 09:22 03/12/20 09:22 03/12/20 09:22 03/12/20 09:22 03/12/20 09:22 - Laboratory Result Diagrams: 03/12/20 10:10 03/12/20 10:10 Laboratory results interpreted by me: 03/12/20 03/12/20 03/12/20 10:00 10:10 10:10 RBC 5.69 H Hgb 15.7 H Hct 47.2 H RDW 15.3 H Sodium 135.2 L Urine Ketones 20 H Urine Blood SMALL H - Diagnostic Test Radiology reviewed: Image reviewed, Reports reviewed Discharge - Discharge Clinical Impression: Uncontrolled hypertension Abdominal pain Qualifiers: Abdominal location: generalized Qualified Code(s): R10.84 - Generalized abdominal pain Condition: Stable Disposition: HOME, SELF-CARE Instructions: Abdominal Pain ([facility]), Oral Narcotic Medication ([facility]), Antinausea Medication ([facility]) Additional Instructions: Please call your primary doctor soon as possible to arrange follow-up Prescriptions: Tramadol HCl [Ultram] 50 mg PO Q6 PRN 3 Days #12 tablet PRN Reason: Ondansetron [Zofran Odt 4 mg Tablet] 1 - 2 tab PO Q4H PRN #15 tab.rapdis PRN Reason: For Nausea/Vomiting Forms: Elevated Blood Pressure, Return to Work Referrals: ERMIAS WADSWORTH MD [Primary Care Provider] - Follow up in 3-5 days
[2020-03-12 15:42] VITALS: BP 213/115
[2020-03-12] MEDS ORDERED: CLONIDINE HCL 0.2 MG TABLET PO ONE (16:06)
== END 2020-03-12 16:17 | disposition home or self-care (01) ==
LOC: ER 09:04
DX: R10.84 Generalized abdominal pain (principal); I10 Essential (primary) hypertension; R11.2 Nausea with vomiting, unspecified; R19.7 Diarrhea, unspecified
CPT/HCPCS: 99285; 36415; 83690; 85025; 80053; 81001; 74176; S0119

== ENCOUNTER → 2020-04-18 | Outpatient (CLI) | payer BC ==
--- NOTE | 2020-04-18 12:25 | RADIOLOGY REPORT (SQ) ---
EXAM DESCRIPTION: U/S ABDOMEN LIMITED W/O DOP IMAGES COMPLETED DATE/TIME: 04/18/2020 10:56 am REASON FOR STUDY: BENIGN NEOPLASM OF LIVER D13.4 BENIGN NEOPLASM OF LIVER COMPARISON: None. TECHNIQUE: Dynamic and static grayscale images acquired of the abdomen and recorded on PACS. Additio nal selected color Doppler and spectral images recorded. LIMITATIONS: None. FINDINGS: PANCREAS: No masses. Visualized pancreatic duct normal caliber. LIVER: There appears to be a calcified granuloma in the right lobe of the liver. There is a 27 mm hy perechoic lesion in the right lobe of the liver. LIVER VASCULATURE: Normal directional flow of the main portal vein and hepatic veins. GALLBLADDER: No stones. Normal wall thickness. No pericholecystic fluid. ULTRASOUND-DETECTED MCFARLANE'S SIGN: Negative. INTRAHEPATIC DUCTS AND COMMON DUCT: CBD and intrahepatic ducts normal caliber. No filling defects. AORTA: No aneurysm. RIGHT KIDNEY: Normal size, 10.3 cm. Normal echogenicity. No solid or suspicious masses. No hydroneph rosis. No calcifications. PERITONEAL AND RIGHT PLEURAL SPACE: No ascites or effusions. OTHER: No other significant findings. IMPRESSION: 1. Normal gallbladder. No ductal dilatation. 2. 27 mm hyperechoic lesion in the right lobe of the liver, likely hemangioma. Calcified granuloma in the right lobe of the liver. TECHNICAL DOCUMENTATION: JOB ID: [id number] [employer]- All Rights Reserved Reading location - IP/workstation name: [email or web address]
== END ==
LOC: RAD 10:03
PROVIDERS: ATTEND Internal Medicine
DX: K76.89 Other specified diseases of liver (principal); D13.4 Benign neoplasm of liver
CPT/HCPCS: 76705